=== PATIENT | male | born 2000 | race African-American/Black ===

== ENCOUNTER 2023-06-24 23:49 | Emergency (ER) | payer SELFPAY ==
[~2023-06-24] VITALS: Ht 182.9 cm; Wt 68.2 kg
[2023-06-25 00:10] VITALS: TEMP 97.1
[2023-06-25] MEDS ORDERED: ALPRAZolam 0.5 MG TAB PO ONE (00:30)
[2023-06-25] MEDS ORDERED: XANAX 0.5MG0.5 MG PO (00:58)
[2023-06-25 01:05] VITALS: BP 121/78; PULSE 97
== END 2023-06-25 01:05 | disposition home or self-care (01) ==
LOC: COL.ER 23:49
DX: F43.0 Acute stress reaction (principal)